=== PATIENT | male | born 1955 | race African-American/Black ===

== ENCOUNTER → 2016-09-23 | Outpatient (CLI) | payer MEDICARE ==
--- NOTE | ~2016-09-23 | US128 ---
[id number] [facility] [address]. [place], [place] [address] [id number] O MR#: [id number] Acc #: [id number] NAME: AZUL FONSECA : 1955 SEX: M STUDY DATE/TIME: 09/23/2016 13:56 UNIT: CGUS ROOM: STUDY DESCRIPTION: Thyroid Attending Physician: Leticia Stern M.D. Referring Physician: Leticia Stern M.D. Ordering Physician: Leticia Stern M.D. MEDICAL IMAGING REPORT This report is preliminary unless electronic signature is present EXAM Thyroid ultrasound IMPRESSION Kathi's thyroiditis. Significant weight gain over the years. COMPARISON STUDIES 03/05/2004. FINDINGS The right thyroid lobe is 8.7 x 2.8 x 2.6 cm. There is an isoechoic 2.6 x 1.5 x 1.8 cm posterior mass in the mid-thyroid region. In the inferior thyroid, there is a 3.2 x 2.4 x 1.9 cm well-circumscribed isoechoic lesion. The left thyroid lobe is also enlarged measuring 11.3 x 4.6 x 5.5 cm. It is somewhat nodular and lobular and may contain a 9 cm isoechoic mass in the central portion. The images from prior study seemed to show the mid-right thyroid lesion. The inferior thyroid region on the right is not seen and the nodule on the left side is 3.8 cm on the transverse images. There is not a good longitudinal image of the nodule. IMPRESSION 1. Today's study shows a 2.7 cm mid-right thyroid nodule and a 3.2 cm inferior right thyroid nodule both of which are relatively isoechoic. 2. Both thyroid lobes are markedly enlarged. There may be an isoechoic lobular 9 cm nodule occupying the central portion of the left thyroid lobe. The old study was 13 years ago. 1 of the right thyroid lobe nodules is visible without significant change. I believe this is a mid-thyroid nodule. The inferior thyroid nodule was not visualized at that time and that study did show a large lesion in the left thyroid lobe but there is no adequate imaging it in the longitudinal plane, so I cannot tell how large it was at that time. Dictated by... Karl Ramos M.D. THIS IS AN ELECTRONICALLY VERIFIED REPORT Karl Ramos M.D. at 09/25/2016 7:07 AM ASH/eri TD: 09/24/2016 20:43 JOB #: [id number] MEDICAL IMAGING REPORT Page 1 of 1 COPY
== END | disposition home or self-care (01) ==
LOC: CGUS 13:05
DX: E06.3 Autoimmune thyroiditis (principal); E04.2 Nontoxic multinodular goiter
CPT/HCPCS: 76536

== ENCOUNTER → 2016-10-11 | Outpatient (CLI) | payer MEDICARE ==
--- NOTE | ~2016-10-11 | NM86 ---
[facility] A Service of [facility] RADIOLOGY TEXT RESULTS PATIENT: AZUL FONSECA LOCATION: [facility] : 55 UNIT #: [id number] AGE: [address]: Leticia Stern MD SEX: M ORDER DR: [id number] [facility] [address]. [place], [place] [address] [id number] O MR#: [id number] Acc #: [id number] NAME: AZUL FONSECA : 1955 SEX: M STUDY DATE/TIME: 10/11/2016 7:25 UNIT: [facility] ROOM: STUDY DESCRIPTION: NM Thyroid Img W Uptake Attending Physician: Leticia Stern M.D. Referring Physician: Leticia Stern M.D. Ordering Physician: Leticia Stern M.D. Primary Care Physician: Leticia Stern M.D. MEDICAL IMAGING REPORT This report is preliminary unless electronic signature is present EXAM Thyroid uptake and scan HISTORY Kathi's thyroiditis diagnosed 13 years ago with enlargement of the neck noticed in the last week, voice changing. FINDINGS The patient was given 176.3 McCi of I-123. 24-hours later, the uptake was measured at 17.4% which is normal. Images of the gland show inhomogeneous distribution throughout the thyroid tissue. IMPRESSION 1. Uptake is normal at 17.4%. 2. Activity is inhomogeneous throughout the thyroid tissue. The patient's ultrasound done last week showed some nodular areas. It is difficult to clearly correlate the areas of decreased uptake with the nodules as the patient appears to have a multinodular goiter. Dictated by... Karl Ramos M.D. THIS IS AN ELECTRONICALLY VERIFIED REPORT Karl Ramos M.D. at 10/12/2016 12:46 PM ASH/damaris TD: 10/12/2016 11:15 JOB #: [id number] MEDICAL IMAGING REPORT Page 1 of 1 COPY
== END | disposition home or self-care (01) ==
LOC: CNUC 07:00
DX: E06.3 Autoimmune thyroiditis (principal)
CPT/HCPCS: 78014; A9516

== ENCOUNTER → 2016-11-19 | Outpatient (CLI) | payer MEDICARE ==
--- NOTE | ~2016-11-19 | XA230 ---
[facility] A Service of [facility] RADIOLOGY TEXT RESULTS PATIENT: AZUL FONSECA LOCATION: [facility] : 55 UNIT #: [id number] AGE: [address]: Leticia Stern MD SEX: M ORDER DR: [id number] [facility] [address]. [place], [place] [address] [id number] O MR#: [id number] Acc #: [id number] NAME: AZUL FONSECA : 1955 SEX: M STUDY DATE/TIME: 11/19/2016 7:46 UNIT: [facility] ROOM: STUDY DESCRIPTION: XA FNA Attending Physician: Leticia Stern M.D. Referring Physician: Leticia Stern M.D. Ordering Physician: Leticia Stern M.D. Primary Care Physician: [facility] MEDICAL IMAGING REPORT This report is preliminary unless electronic signature is present EXAM Ultrasound-guided needle aspiration bilateral thyroid nodules. HISTORY Bilateral thyroid nodules. COMPARISON STUDIES Ultrasound 09/23/16 and older ultrasounds from 2004. PROCEDURE Informed consent was obtained from the patient. First the dominant right/isthmic thyroid nodule and subsequently the very large and diffuse left lobe thyroid nodule were aspirated with ultrasound guidance using a 25-gauge needle after local anesthesia. There are no immediate complications and the patient tolerated the procedure well. IMPRESSION Technically successful ultrasound guided needle aspiration of a dominant left lobe thyroid nodule replacing much of the gland perhaps over 8-9 cm in size. A right lobe/isthmic nodule measuring about 3 cm in maximal dimension was also aspirated with ultrasound guidance. Dictated by... John Corona M.D. THIS IS AN ELECTRONICALLY VERIFIED REPORT John Corona M.D. at 11/21/2016 2:08 PM ROSANNA/yunior [facility] A Service of [facility] RADIOLOGY TEXT RESULTS PATIENT: AZUL FONSECA LOCATION: [facility] : 55 UNIT #: [id number] AGE: [address]: Leticia Stern MD SEX: M ORDER DR: TD: 11/20/2016 06:19 JOB #: [id number] MEDICAL IMAGING REPORT Page 1 of 1 COPY
== END | disposition home or self-care (01) ==
LOC: CIVR 07:21
DX: E05.20 Thyrotoxicosis with toxic multinodular goiter without thyrotoxic crisis or storm (principal)
CPT/HCPCS: 76942; 88173; 88305